=== PATIENT | female | born 1995 | race Caucasian/White ===

== ENCOUNTER 2018-07-23 00:20 | Emergency (ER) | payer MEDICAID, OTHER ==
[~2018-07-23] VITALS: Ht 165.1 cm; Wt 103.4 kg
[~2018-07-23 00:20] MED LIST: LISI-167 PO; [UNRECOGNIZED DRUG - REMARK]
[2018-07-23 00:21] VITALS: BP 165/95
[2018-07-23] MEDS ORDERED: IBUPROFEN 200 MG TABLET PO ONE (01:30)
[2018-07-23] MEDS ORDERED: IBUPROFEN 200 MG TABLET ONE (01:46)
== END 2018-07-23 01:56 | disposition home or self-care (01) ==
LOC: ED 01:50
DX: S63.511A Sprain of carpal joint of right wrist, initial encounter (principal); W19.XXXA Unspecified fall, initial encounter; Y93.89 Activity, other specified; Y92.410 Unspecified street and highway as the place of occurrence of the external cause; Y99.8 Other external cause status
CPT/HCPCS: 29260; 99284

== ENCOUNTER 2019-04-02 21:26 | Emergency (ER) | payer MEDICAID ==
[~2019-04-02] VITALS: Ht 165.1 cm; Wt 104.5 kg
[2019-04-02] MEDS ORDERED: ONDANSETRON 2MG/ML, 2ML IVPush ONE (22:00)
[2019-04-02] MEDS ORDERED: HYDROmorphone 2 MG/ML, 1ML IVPush PRN (22:00)
[2019-04-02] MEDS ORDERED: SODIUM CHLORIDE FLUSH 10ML SYR IVF ONE (22:00)
[2019-04-02] MEDS ORDERED: FAMOTIDINE 20 MG/2 ML IVP ONE (22:00)
[2019-04-02 22:12] LABS: BASOPHILS # (AUTO) 0.06 x10^3/uL (0-0.1); BASOPHILS % (AUTO) 1 % (0-1); EOSINOPHILS # (AUTO) 0.11 x10^3/uL (0-0.4); EOSINOPHILS % (AUTO) 1 % (1-7); LYMPHOCYTES # (AUTO) 2.53 x10^3/uL (1-3.4); LYMPHOCYTES % (AUTO) 23 % (22-44); MD NO; MEAN CORPUSCULAR HEMOGLOBIN 27.7 pg (27.0-34.8); MEAN CORPUSCULAR HGB CONC 33.3 g/dL (32.4-35.8); MEAN CORPUSCULAR VOLUME 83.2 fL (80-100); MEAN PLATELET VOLUME 8.1 fL (7.4-10.4); MONOCYTES # (AUTO) 0.55 x10^3/uL (0.2-0.8); MONOCYTES % (AUTO) 5 % (2-9); NEUTROPHILS # (AUTO) 7.99 x10^3/uL (1.8-6.8); NEUTROPHILS % (AUTO) 71 % (42-75); PLATELET COUNT 251 x10^3/uL (130-400); RED BLOOD COUNT 5.63 x10^6/uL (3.82-5.3); RED CELL DISTRIBUTION WIDTH 12.9 % (9.6-15.2)
[2019-04-02 22:25] LABS: ALANINE AMINOTRANSFERASE 29 U/L (12-78); ALBUMIN 3.6 g/dL (3.4-5.0); ANION GAP 7 mmol/L (5-15); CALCIUM 9.1 mg/dL (8.5-10.1); CHLORIDE 108 mmol/L (98-107); CREATININE 0.92 mg/dL (0.55-1.02)
[2019-04-02] MEDS ORDERED: HYDROmorphone 2 MG/ML, 1ML ONE (22:25)
[2019-04-02] MEDS ORDERED: ONDANSETRON 2MG/ML, 2ML ONE (22:25)
[2019-04-02] MEDS ORDERED: FAMOTIDINE 20 MG/2 ML ONE (22:25)
[2019-04-02 22:29] LABS: ALKALINE PHOSPHATASE 60 U/L (45-117); BILIRUBIN,TOTAL 0.3 mg/dL (0.2-1.0); TOTAL PROTEIN 7.4 g/dL (6.4-8.2)
[2019-04-02 22:32] LABS: MICROSCOPIC AUTO
[2019-04-02 22:33] LABS: CULTURE INDICATED? YES
[2019-04-02] MEDS ORDERED: OMNIPAQUE 350 MG/ML, 100ML BOTTLE ONE (22:35)
--- NOTE | 2019-04-02 22:39 | NUR ---
IV ESTABLISHED AND PT MEDICATED PER MAR, AWAITING LAB RESULTS. PT RESTING IN [facility], [facility], NO NEEDS AT THIS TIME. CALL LIGHT WITHIN REACH
[2019-04-02 22:40] VITALS: BP 156/98
--- NOTE | 2019-04-02 22:40 | NUR ---
PT TO CT
--- NOTE | 2019-04-02 22:49 | NUR ---
PT RETURNED FROM CT
--- NOTE | 2019-04-02 22:57 | NUR ---
SBAR report received from Rico SALAS. Pt in imaging at this time. Addendum: 04/02/19 at 2258 by LILLIE SBAR report received from Rico SALAS. [email or web address]
== END 2019-04-02 23:56 | disposition home or self-care (01) ==
LOC: ED 22:51
DX: R10.13 Epigastric pain (principal); H92.02 Otalgia, left ear; F17.210 Nicotine dependence, cigarettes, uncomplicated; Z90.49 Acquired absence of other specified parts of digestive tract; I10 Essential (primary) hypertension; F41.1 Generalized anxiety disorder
CPT/HCPCS: 36415; 71045; 74177; 80053; 81001; 83690; 84703; 85025; 85379; 87086; 93005; 96374; 96375; 99284; J1170; J2405; J3490; Q9967; 87147

== ENCOUNTER 2019-10-30 16:45 | Emergency (ER) | payer MEDICAID ==
[~2019-10-30] VITALS: Ht 167.6 cm; Wt 106.0 kg
--- NOTE | 2019-10-30 17:59 | NUR ---
[facility] HOME: PT AMBULATORY WITH STEADY GAIT TO ROOM AT THIS TIME.
[2019-10-30 18:00] LABS: BASOPHILS # (AUTO) 0.03 x10^3/uL (0-0.1); BASOPHILS % (AUTO) 0 % (0-1); EOSINOPHILS # (AUTO) 0.13 x10^3/uL (0-0.4); EOSINOPHILS % (AUTO) 2 % (1-7); LYMPHOCYTES # (AUTO) 1.66 x10^3/uL (1-3.4); LYMPHOCYTES % (AUTO) 21 % (22-44); MD NO; MEAN CORPUSCULAR HEMOGLOBIN 27.5 pg (27.0-34.8); MEAN CORPUSCULAR HGB CONC 32.8 g/dL (32.4-35.8); MEAN PLATELET VOLUME 8.3 fL (7.4-10.4); MONOCYTES # (AUTO) 0.42 x10^3/uL (0.2-0.8); MONOCYTES % (AUTO) 5 % (2-9); NEUTROPHILS # (AUTO) 5.61 x10^3/uL (1.8-6.8); NEUTROPHILS % (AUTO) 72 % (42-75); PLATELET COUNT 238 x10^3/uL (130-400); RED BLOOD COUNT 5.42 x10^6/uL (3.82-5.3); RED CELL DISTRIBUTION WIDTH 12.3 % (9.6-15.2)
[2019-10-30] MEDS ORDERED: SODIUM CHLORIDE FLUSH 10ML SYR IVF ONE (18:00)
[2019-10-30 18:07] LABS: ALANINE AMINOTRANSFERASE 29 U/L (12-78); ALBUMIN 3.5 g/dL (3.4-5.0); CALCIUM 9.4 mg/dL (8.5-10.1)
[2019-10-30 18:10] LABS: ALKALINE PHOSPHATASE 72 U/L (45-117); BILIRUBIN,TOTAL 0.3 mg/dL (0.2-1.0); CREATININE 0.79 mg/dL (0.55-1.02); TOTAL PROTEIN 7.3 g/dL (6.4-8.2)
[2019-10-30 18:16] LABS: ANION GAP 7 mmol/L (5-15); CHLORIDE 111 mmol/L (98-107)
[2019-10-30] MEDS ORDERED: LISI-167 PO (18:25)
[2019-10-30 18:41] LABS: MICROSCOPIC NOT IND
[2019-10-30 18:43] LABS: CULTURE INDICATED? NO
[2019-10-30 20:28] VITALS: BP 122/74
== END 2019-10-30 20:32 | disposition home or self-care (01) ==
LOC: ED 20:19
DX: R10.9 Unspecified abdominal pain (principal); R19.7 Diarrhea, unspecified; R11.0 Nausea; I10 Essential (primary) hypertension; Z90.49 Acquired absence of other specified parts of digestive tract; Z90.89 Acquired absence of other organs
CPT/HCPCS: 36415; 74018; 76770; 80053; 81003; 83690; 84703; 85025; 99284